=== PATIENT | male | born 1955 | race Caucasian/White ===

== ENCOUNTER → 2017-03-28 | Outpatient (CLI) | payer OTHER ==
[~2017-03-28] VITALS: Ht 182.9 cm; Wt 94.0 kg
[~2017-03-28] MED LIST: LACTATED RINGERS 1,000 ML IV SCH; MULT-658 PO; None per pt
[2017-03-29 08:11] VITALS: BP 114/73
== END | disposition home or self-care (01) ==
LOC: STAR 07:42 → OUT 03-29 07:42 → EDSTATUS 03-29 09:30
PROVIDERS: ATTEND Orthopaedic Surgery Foot and Ankle Surgery
DX: Z01.810 Encounter for preprocedural cardiovascular examination (principal); S82.831A Other fracture of upper and lower end of right fibula, initial encounter for closed fracture
CPT/HCPCS: 93005

== ENCOUNTER 2017-11-26 11:09 | Day surgery (SDC) | payer OTHER ==
[~2017-11-26] VITALS: Ht 182.9 cm; Wt 94.1 kg
[~2017-11-26 11:09] MED LIST changes: -LACTATED RINGERS 1,000 ML IV SCH
[2017-11-26 11:43] VITALS: BP 124/79
[2017-11-26] MEDS ORDERED: no meds per pt (11:43)
[2017-11-26] MEDS ORDERED: LACTATED RINGERS 1,000 ML IV SCH (12:07)
[2017-11-26] MEDS ORDERED: ACETAMINOPHEN 500 MG TABLET ONE (12:10)
[2017-11-26] MEDS ORDERED: FENTANYL PF 250 MCG/5ML ONE (12:22)
[2017-11-26] MEDS ORDERED: MIDAZOLAM 1 MG/ML, 2ML ONE (12:22)
[2017-11-26] MEDS ORDERED: niCARDipine 2.5 MG/ML, 10ML ONE (12:25)
[2017-11-26] MEDS ORDERED: BUPIVACAINE 0.25% ONE (12:26)
[2017-11-26] MEDS ORDERED: EPINEPHRINE 1 MG/ML, 1ML ONE (12:26)
[2017-11-26] MEDS ORDERED: ACETAMINOPHEN 500 MG TABLET PO ONE (12:30)
[2017-11-26] MEDS ORDERED: ONDANSETRON 2MG/ML, 2ML ONE ×2 (12:51→13:24)
[2017-11-26] MEDS ORDERED: LIDOCAINE-MPF 2% ,5ML ONE (12:51)
[2017-11-26] MEDS ORDERED: PROMETHAZINE 25 MG/ML, 1ML IV PRN (13:00)
[2017-11-26] MEDS ORDERED: ONDANSETRON ODT 8 MG PO PRN (13:00)
[2017-11-26] MEDS ORDERED: DIAZEPAM 5 MG/ML, 2ML IVPush PRN (13:00)
[2017-11-26] MEDS ORDERED: MORPHINE SULFATE 4 MG/ML, 1ML IVPush PRN (13:00)
[2017-11-26] MEDS ORDERED: CEFAZOLIN 1,000 MG ONE (13:24)
[2017-11-26] MEDS ORDERED: DEXAMETHASONE 4 MG/ML, 1ML ONE (13:24)
[2017-11-26] MEDS ORDERED: PROPOFOL 10 MG/ML, 20ML ONE (13:24)
[2017-11-26] MEDS ORDERED: FENTANYL PF 100 MCG/2ML ONE (14:22)
[2017-11-26] MEDS ORDERED: OXYcodone 5 MG/5 ML ORAL.SOL UDC ONE (14:22)
[2017-11-26] MEDS: FENTANYL PF 100 MCG/2ML IV PRN ×2 (14:25→14:43)
[2017-11-26] MEDS ORDERED: OXYcodone 5 MG/5 ML ORAL.SOL UDC PO PRN (14:30)
== END 2017-11-26 17:40 ==
LOC: OUT 11:09
PROVIDERS: ATTEND Orthopaedic Surgery
DX: S76.112A Strain of left quadriceps muscle, fascia and tendon, initial encounter (principal); X58.XXXA Exposure to other specified factors, initial encounter; Y93.89 Activity, other specified; Y92.89 Other specified places as the place of occurrence of the external cause; Y99.8 Other external cause status
CPT/HCPCS: 27430; 64445; 93005; J0171; J0690; J1100; J2250; J2405; J2704; J3010; J3490; J7120